=== PATIENT | female | born 2000 | race Caucasian/White ===

== ENCOUNTER 2021-05-24 17:35 | Emergency (ER) | payer BC, SELFPAY ==
[2021-05-24 18:30] VITALS: BP 121/71; PULSE 105; RESP 20; TEMP 36.9; O2SAT 100; BMI 19.3
--- NOTE | 2021-05-24 18:54 | HMH.EDUTC ---
[facility] [place] Disposition Clinical Impression: Encounter for laboratory testing for COVID-19 virus Disposition: Home, Self-Care Condition on Discharge: Good Instructions: DI for COVID-19 (Suspected or Confirmed ), Preventing the Spread of Coronavirus Discharge Instructions Additional Instructions: *Monitor Temp, Over the counter Motrin or Tylenol as directed/as needed Tylenol every 4 hours and Motrin every 6 hours (as long as your family doctor has told you that you can take it) for fever or pain. and straight to ER if unable to lower temp less than 101.0 after medication given *Warm salt water gargles may help to soothe the throat *Throat Lozenges *Warm fluids like tea with honey may help to soothe the throat *Sleep elevated *Humidifier/Vaporizer * Follow up IMMEDIATELY for new or worsening symptoms or no Noticeable improvement over the next 48-72 hours. 911 for difficulty breathing or swallowing You were tested for today for COVID19 your test result should be back in the next 24-48 hours, You was given written instructions for [facility] portal you can see your results there when they come back you may check it often to see if they are done You was given a handout with instructions for Self Quarantine and Self isolation for while you wait on test results and what to do if they are positive If you are positive the Health Dept will be contacting you also Make sure to take your Vitamins Vit. C Vit D and Zinc if you can take them Referrals: Tiago Cantrell MD [Primary Care Provider] - As needed Forms: Work/School Release Time of Disposition: 18:59 Medical Decision Making - Heber Inquiry Pt receiving controlled substance: No Heber was queried for this patient: No Vital Signs: 05/24/21 18:30 Temperature 98.5 F Temperature Source Oral Pulse Rate [Right Brachial] 105 H Respiratory Rate 20 Blood Pressure [Right Arm] 121/71 Blood Pressure Mean [Right Arm] 87 Blood Pressure Source [Right Arm] Automatic Cuff Blood Pressure Position [Right Arm] Sitting 02 Sat by Pulse Oximetry 100 Oxygen Delivery Method Room Air Orders (Tests/Meds): ORDERS Category Date Time Status Covid-19 Nasal PCR ([facility]) Routine Lab 05/24/21 18:46 Ordered [facility] [place] HPI - General Stated complaint: COVID TEST Time Seen by Provider: 05/24/21 18:54 Mode of Arrival: Ambulatory Source of Information: Patient Limitations: No Limitations Description of Symptoms (Recalled from Triage Doc. by RN): PATIENT C/O COUGH AND LOSS OF TASTE AND SMELL. REQUESTING COVID TEST HEENT Symptoms (Recalled from RN notes): Yes Resp Symptoms (Recalled from RN notes): Yes Skin Symptoms (Recalled from RN notes): No MS Symptoms (Recalled from RN notes): No Functional Status (Recalled from RN notes): WNL - History of Present Illness Provider Complaint: Patient state that she is wanting to have COVID test done State that she has been having cough, and still can smell but has loss her sense of taste States that she has been taking mucinex and allergy medication but wanted to get tested due to symptoms States that she wasnt sure if it was her allergies or not but wanted to get checked - Related Data Allergies Allergy/AdvReac Type Severity Reaction Status Date / Time No Known Allergies Allergy Verified 05/24/21 18:45 - Worker's Comp Is this a Worker's Comp case?: No H History - Hepatitis A Screen Drug use history?: No High risk sexual behaviors?: No History of sexually transmitted infection?: No Currently employed?: No Childcare worker?: No Do you have indoor plumbing?: Yes Do you have electricity?: Yes Attestation statement:: This patient has been screened for Hepatitis A risk factors. I have reviewed the patient's past medical history: Yes ROS Obtained: Yes All systems reviewed & no additional complaints, Yes Systems reviewed as appropriate & no additional complaints - Constitutional Constitutional: Reports system reviewed and no additional compla
[2021-05-24 19:20] VITALS: BP 121/71; PULSE 105; RESP 20; TEMP 36.9; O2SAT 100
== END 2021-05-24 19:22 | disposition home or self-care (01) ==
PROVIDERS: Emergency Provider Nurse Practitioner; PCP Internal Medicine Adolescent Medicine
DX: Z20.822 Contact with and (suspected) exposure to COVID-19 (principal)
CPT/HCPCS: 99202; G0463; U0003